=== PATIENT | female | born 1940 | race Caucasian/White ===

== ENCOUNTER 2023-04-20 22:29 | Inpatient (IN) | payer OTHER, MEDICAID ==
[~2023-04-20] VITALS: Ht 162.6 cm; Wt 85.2 kg
[~2023-04-20 22:29] MED LIST: CLOP75TA28 PO; ENAL1TAB42 PO; EZET10TA22 PO; FOLI1TAB51 PO; FURO1TAB33 PO; GABA100C PO; GLIP10TA9 PO; LEV100T PO; LEVEMIR SC; LEVO175T2 PO; MELO-335 PO; NITR0.4S29 SL; NOR10T PO; PRAV20TA3 PO; VENL150C58 PO
[2023-04-21] VITALS (12 sets, daily range): BP systolic 78–121; BP diastolic 45–78; PULSE 59–93; RESP 13–22; TEMP 97.7; O2SAT 85–100
[2023-04-21] MEDS ORDERED: ALBU108A5 INH (16:07)
[2023-04-21] MEDS ORDERED: NITROGLYCERIN 0.4 MG SL TAB SL PRN (17:30)
[2023-04-21] MEDS ORDERED: ACETAMINOPHEN 325 MG TAB PO PRN (17:30)
[2023-04-21] MEDS ORDERED: MORPHINE SULFATE INJ 2 MG/ml SYRG IV PRN ×2 (17:30)
[2023-04-21] MEDS ORDERED: GABA-1250 PO (17:50)
[2023-04-21] MEDS ORDERED: METO-159 PO (17:50)
[2023-04-21] MEDS ORDERED: FERR325T20 PO (17:50)
[2023-04-21] MEDS ORDERED: PRE5T PO (17:50)
[2023-04-21] MEDS ORDERED: ERGO1CAP12 PO (17:50)
[2023-04-21] MEDS ORDERED: ASPI-325 PO (17:50)
[2023-04-21] MEDS ORDERED: PANT40T PO (17:50)
[2023-04-21] MEDS ORDERED: LEVO175T4 PO (17:50)
[2023-04-21] MEDS ORDERED: APIX2.5T PO (17:50)
[2023-04-21 17:54] LABS: Alanine Aminotransferase 27 U/L (7-40); Albumin 3.8 g/dL (3.2-4.8); Alkaline Phosphatase 69 U/L (46-116); Anion Gap 11 (5-15); Aspartate Aminotransferase 43 U/L (13-40); BUN/Creatinine Ratio 15.4 (10.0-20.0); Bilirubin, Total 0.4 mg/dL (0.2-1.0); Blood Urea Nitrogen 30 mg/dL (9-23); Calcium 9.2 mg/dL (8.5-10.1); Carbon Dioxide 19 mmol/L (20-30); Chloride 103 mmol/L (98-107); Glucose 237 mg/dL (74-106); Potassium 4.6 mmol/L (3.5-5.1); Sodium 133 mmol/L (136-145); Total Protein 6.2 g/dL (5.7-8.2)
[2023-04-21] MEDS ORDERED: FURO1TAB31 PO (17:55)
[2023-04-21] MEDS ORDERED: DEXTROSE (50%) 50ML SYRG IV PRN (18:00)
[2023-04-21] MEDS ORDERED: FERROUS SULFATE 325mg EC TAB PO SCH (18:00)
[2023-04-21 18:03] LABS: Basophils # (auto) 0.1 10 ^3/uL (0-0.2); Basophils % (auto) 0.7 % (0.0-2.0); Eosinophils # (auto) 0.3 10 ^3/uL (0-0.8); Eosinophils % (auto) 2.1 % (0.0-7.0); Hematocrit 31.1 % (36.0-46.0); Hemoglobin 9.7 g/dL (12.2-16.2); Lymphocytes # (auto) 1.5 10 ^3/uL (0.4-5.4); Lymphocytes % (auto) 11.4 % (10.0-50.0); Mean Corpuscular Hemoglobin 30.8 pg (28.0-32.0); Mean Corpuscular Hgb Conc. 31.1 g/dL (32.0-36.0); Mean Corpuscular Volume 98.8 fL (80.0-100.0); Monocytes # (auto) 1.7 10 ^3/uL (0-1.3); Monocytes % (auto) 12.8 % (0.0-12.0); Neutrophils # (auto) 9.6 10 ^3/uL (1.6-8.6); Red Blood Cells 3.15 10^6/uL (4.0-5.20); Red Cell Distribution Width 19.9 % (11.8-14.3); White Blood Cell 13.1 10^3/uL (4.4-10.8)
[2023-04-21 18:04] LABS: Nucleated Red Blood Cells % 3.3 %
[2023-04-21 18:27] LABS: Triglycerides 123 mg/dL (< 150)
[2023-04-21 18:28] LABS: LDL Cholesterol 61 mg/dL (< 100)
[2023-04-21 18:29] LABS: HDL Cholesterol 38 mg/dL (40-59)
[2023-04-21 18:30] LABS: Cholesterol 128 mg/dL (< 200)
[2023-04-21] MEDS ORDERED: methylPREDNISolone SOD SUCC 125 MG/2 ML VL IV ONE (18:30)
[2023-04-21] MEDS ORDERED: ENOXAPARIN SOD 40 MG/0.4 ML SYRINGE SC ONE (18:30)
[2023-04-21] MEDS: FUROSEMIDE 40 MG/4 ML VIAL IV SCH (18:41)
[2023-04-21 18:43] LABS: COVID19 ANTIGEN SOFIA FIA NEGATIVE (NEGATIVE)
[2023-04-21] MEDS ORDERED: ENOXAPARIN SOD 30 MG/0.3 ML SYRINGE SC SCH (18:43)
[2023-04-21] MEDS ORDERED: INSU1INJ14 SC (18:51)
[2023-04-21] MEDS: AZITHROMYCIN 500MG/ 250ML 250 ML IV SCH (19:00)
[2023-04-21] MEDS: BUDESONIDE (INHALATION) 0.5 MG/2 ML NEB NEB SCH (19:07)
[2023-04-21] MEDS: IPRATROPIUM BROM 0.5 MG/2.5ML INH SOL NEB SCH (19:07)
[2023-04-21 19:31] LABS: Base Excess -7.2 mmol/L (-2.0-2.0)
[2023-04-21 20:27] LABS: % Iron Saturation 28.3 % (15-50)
[2023-04-21] MEDS ORDERED: LORazepam 2MG/ML-1ML VIAL IV PRN (21:30)
[2023-04-21] MEDS: ACCU-CHEK COMFORT CURVE STRIP VI SCH (21:45)
[2023-04-21 21:47] LABS: Base Excess -12.7 mmol/L (-2.0-2.0)
[2023-04-21] MEDS: PANTOPRAZOLE 40 MG/10 ML VIAL INJ IV SCH (21:53)
[2023-04-21] MEDS: cefTRIAXone 1GM/50ML D5W 50 ML IV SCH (21:53)
[2023-04-21] MEDS ORDERED: INSULIN LANTUS (GLARGINE) 1 /0.01ml (100units/ml) SC SCH (22:00)
[2023-04-21] MEDS ORDERED: InsuLIN REG 1unit/0.01ml Soln (100units/ml) SC SCH (22:00)
[2023-04-21] MEDS ORDERED: FUROSEMIDE 40 MG/4 ML VIAL IV ONE (23:45)
[2023-04-21] MEDS ORDERED: SODIUM BICARBONATE 8.4 % INJ 50ML VIAL IV ONE (23:45)
[2023-04-21 23:47] LABS: Urine Epithelial Cast None Seen /hpf (<5)
[2023-04-22] VITALS (87 sets, daily range): BP systolic 78–133; BP diastolic 36–77; PULSE 62–104; RESP 12–41; TEMP 96–98.1; O2SAT 84–100
[2023-04-22 00:08] LABS: Creatinine, Urine 178.23 mg/dL (30.0-125.0)
[2023-04-22 00:20] LABS: Protein, Urine 224.4 mg/dL (0.0-11.9); Urine Protein/Creatinine Ratio 1.26
[2023-04-22] MEDS: ALBUTEROL SULF 2.5 MG/0.5ML(0.5%) NEB SOLN NEB PRN ×3 (00:28→23:49)
[2023-04-22] MEDS: IPRATROPIUM BROM 0.5 MG/2.5ML INH SOL NEB SCH ×5 (00:28→23:49)
[2023-04-22 00:36] LABS: Urine Bacteria NONE SEEN /hpf (None Seen); Urine Mucus FEW (None Seen); Urine WBC 39 /hpf (0 - 5)
[2023-04-22 00:43] LABS: Urine Clarity HAZY (Clear); Urine Protein, UAD 3+ (Negative); Urine Specific Gravity 1.025 (1.001-1.035)
[2023-04-22 00:44] LABS: Urine Blood 3+ /uL (Negative)
[2023-04-22 00:45] LABS: Urine Color Yellow (Yellow)
[2023-04-22 01:14] LABS: Base Excess -6.2 mmol/L (-2.0-2.0)
[2023-04-22 06:00] LABS: Basophils # (auto) 0 10 ^3/uL (0-0.2); Basophils % (auto) 0.4 % (0.0-2.0); Eosinophils # (auto) 0 10 ^3/uL (0-0.8); Hematocrit 29.2 % (36.0-46.0); Hemoglobin 9.5 g/dL (12.2-16.2); Lymphocytes # (auto) 0.5 10 ^3/uL (0.4-5.4); Lymphocytes % (auto) 5.9 % (10.0-50.0); Mean Corpuscular Hemoglobin 31.5 pg (28.0-32.0); Mean Corpuscular Hgb Conc. 32.6 g/dL (32.0-36.0); Mean Corpuscular Volume 96.6 fL (80.0-100.0); Monocytes # (auto) 0.3 10 ^3/uL (0-1.3); Monocytes % (auto) 3.4 % (0.0-12.0); Neutrophils # (auto) 8.2 10 ^3/uL (1.6-8.6); Neutrophils % (auto) 90.3 % (37.0-80.0); Nucleated Red Blood Cells % 1.9 %; Red Blood Cells 3.02 10^6/uL (4.0-5.20); Red Cell Distribution Width 18.1 % (11.8-14.3); White Blood Cell 9.1 10^3/uL (4.4-10.8)
[2023-04-22 06:09] LABS: Alkaline Phosphatase 69 U/L (46-116)
[2023-04-22 06:10] LABS: Alanine Aminotransferase 106 U/L (7-40); Albumin 3.6 g/dL (3.2-4.8); Anion Gap 13 (5-15); Aspartate Aminotransferase 159 U/L (13-40); BUN/Creatinine Ratio 14.8 (10.0-20.0); Bilirubin, Total 0.4 mg/dL (0.2-1.0); Blood Urea Nitrogen 37 mg/dL (9-23); Calcium 9.2 mg/dL (8.5-10.1); Carbon Dioxide 19 mmol/L (20-30); Chloride 101 mmol/L (98-107); Glucose 365 mg/dL (74-106); Potassium 4.7 mmol/L (3.5-5.1); Sodium 133 mmol/L (136-145); Total Protein 5.8 g/dL (5.7-8.2)
[2023-04-22] MEDS: FUROSEMIDE 40 MG/4 ML VIAL IV SCH ×3 (06:34→18:00)
[2023-04-22] MEDS ORDERED: InsuLIN REG 1unit/0.01ml Soln (100units/ml) SC SCH (07:00)
[2023-04-22] MEDS: LEVOTHYROXINE SODIUM 50 MCG TAB PO SCH (07:00)
[2023-04-22] MEDS: BUDESONIDE (INHALATION) 0.5 MG/2 ML NEB NEB SCH ×2 (07:13→23:49)
[2023-04-22] MEDS ORDERED: HEPARIN DRIP/D5W 100UNITS/ML 250 ML IV SCH (07:15)
[2023-04-22] MEDS: ACCU-CHEK COMFORT CURVE STRIP VI SCH ×4 (07:31→21:46)
[2023-04-22] MEDS ORDERED: INSULIN LANTUS (GLARGINE) 1 /0.01ml (100units/ml) SC SCH (08:15)
[2023-04-22] MEDS ORDERED: ERGOCALCIFEROL 50,000 UNIT(1.25MG) CAP PO SCH (08:15)
[2023-04-22] MEDS ORDERED: INSULIN LANTUS (GLARGINE) 1 /0.01ml (100units/ml) SC ONE ×2 (08:15→09:30)
[2023-04-22] MEDS: cefTRIAXone 1GM/50ML D5W 50 ML IV SCH (08:17)
[2023-04-22] MEDS: PANTOPRAZOLE 40 MG/10 ML VIAL INJ IV SCH ×2 (08:17→21:40)
[2023-04-22] MEDS: methylPREDNISolone SOD SUCC 40 MG/ML VL IV SCH ×2 (08:17→21:40)
[2023-04-22 08:22] LABS: INR 1.24 (0.9-1.15); Partial Thromboplastin Time 28.9 SEC (24.5-34.5); Prothrombin Time 12.8 sec (9.3-11.8)
[2023-04-22 08:43] LABS: Base Excess -6.5 mmol/L (-2.0-2.0)
[2023-04-22] MEDS: AZITHROMYCIN 500MG/ 250ML 250 ML IV SCH (08:59)
[2023-04-22] MEDS: CYANOCOBALAMIN 500 MCG TAB PO SCH (09:25)
[2023-04-22] MEDS ORDERED: DEXTROSE (50%) 50ML SYRG IV PRN (12:15)
[2023-04-22] MEDS ORDERED: DOCUSATE CALCIUM 240 MG CAP PO PRN (12:15)
[2023-04-22] MEDS: IRON SUCROSE COMPLEX 100 ML IV SCH (12:20)
[2023-04-22] MEDS: InsuLIN REG 1unit/0.01ml Soln (100units/ml) SC SCH ×3 (12:25→22:00)
[2023-04-22] MEDS: DOPamine 1600MCG/ML D5W 250 ML IV SCH (12:31)
[2023-04-22 13:25] LABS: Basophils # (auto) 0 10 ^3/uL (0-0.2); Basophils % (auto) 0.3 % (0.0-2.0); Eosinophils # (auto) 0 10 ^3/uL (0-0.8); Eosinophils % (auto) 0.1 % (0.0-7.0); Hematocrit 27.9 % (36.0-46.0); Hemoglobin 8.8 g/dL (12.2-16.2); Lymphocytes # (auto) 0.5 10 ^3/uL (0.4-5.4); Lymphocytes % (auto) 5.7 % (10.0-50.0); Mean Corpuscular Hemoglobin 31.2 pg (28.0-32.0); Mean Corpuscular Hgb Conc. 31.7 g/dL (32.0-36.0); Mean Corpuscular Volume 98.5 fL (80.0-100.0); Monocytes # (auto) 0.4 10 ^3/uL (0-1.3); Monocytes % (auto) 4.6 % (0.0-12.0); Neutrophils # (auto) 8.5 10 ^3/uL (1.6-8.6); Neutrophils % (auto) 89.3 % (37.0-80.0); Red Blood Cells 2.83 10^6/uL (4.0-5.20); Red Cell Distribution Width 18.9 % (11.8-14.3); White Blood Cell 9.5 10^3/uL (4.4-10.8)
[2023-04-22] MEDS: SODIUM BICARBONATE 650 MG TAB PO SCH ×2 (13:31→21:40)
[2023-04-22 13:33] LABS: Nucleated Red Blood Cells % 4.6 %
[2023-04-22] MEDS ORDERED: ONDANSETRON HCL 4 MG/2 ML VIAL IV PRN (14:45)
[2023-04-22] MEDS: INSULIN LANTUS (GLARGINE) 1 /0.01ml (100units/ml) SC SCH ×2 (15:00→22:00)
[2023-04-22 15:53] LABS: INR 1.28 (0.9-1.15); Prothrombin Time 13.2 sec (9.3-11.8)
[2023-04-22 16:12] LABS: Partial Thromboplastin Time 85.7 SEC (24.5-34.5)
[2023-04-22 18:13] LABS: Basophils # (auto) 0 10 ^3/uL (0-0.2); Basophils % (auto) 0.2 % (0.0-2.0); Eosinophils # (auto) 0 10 ^3/uL (0-0.8); Hematocrit 25.7 % (36.0-46.0); Hemoglobin 8.3 g/dL (12.2-16.2); Lymphocytes # (auto) 0.5 10 ^3/uL (0.4-5.4); Lymphocytes % (auto) 4.7 % (10.0-50.0); Mean Corpuscular Hemoglobin 31.5 pg (28.0-32.0); Mean Corpuscular Hgb Conc. 32.4 g/dL (32.0-36.0); Monocytes # (auto) 0.7 10 ^3/uL (0-1.3); Monocytes % (auto) 6.5 % (0.0-12.0); Neutrophils # (auto) 10.1 10 ^3/uL (1.6-8.6); Neutrophils % (auto) 88.6 % (37.0-80.0); Nucleated Red Blood Cells % 2.3 %; Red Blood Cells 2.65 10^6/uL (4.0-5.20); Red Cell Distribution Width 18.1 % (11.8-14.3); White Blood Cell 11.5 10^3/uL (4.4-10.8)
[2023-04-22 22:46] LABS: INR 1.26 (0.9-1.15); Partial Thromboplastin Time 67.1 SEC (24.5-34.5)
[2023-04-22] MEDS: HYDROcodone-ACET 5/325MG TAB PO PRN (23:23)
[2023-04-23] VITALS (40 sets, daily range): BP systolic 93–123; BP diastolic 44–82; PULSE 76–174; RESP 13–34; TEMP 97.3–98.4; O2SAT 84–100
[2023-04-23 00:49] LABS: Basophils # (auto) 0 10 ^3/uL (0-0.2); Basophils % (auto) 0.2 % (0.0-2.0); Eosinophils # (auto) 0 10 ^3/uL (0-0.8); Hematocrit 26.4 % (36.0-46.0)
[2023-04-23 00:51] LABS: Eosinophils % (auto) 0.2 % (0.0-7.0); Hemoglobin 8.5 g/dL (12.2-16.2); Lymphocytes # (auto) 0.7 10 ^3/uL (0.4-5.4); Lymphocytes % (auto) 5.1 % (10.0-50.0); Mean Corpuscular Hemoglobin 31.6 pg (28.0-32.0); Mean Corpuscular Hgb Conc. 32.3 g/dL (32.0-36.0); Mean Corpuscular Volume 97.8 fL (80.0-100.0); Monocytes # (auto) 0.8 10 ^3/uL (0-1.3); Monocytes % (auto) 5.9 % (0.0-12.0); Neutrophils # (auto) 11.6 10 ^3/uL (1.6-8.6); Neutrophils % (auto) 88.6 % (37.0-80.0); Nucleated Red Blood Cells % 2.1 %; Red Cell Distribution Width 18.3 % (11.8-14.3); White Blood Cell 13.1 10^3/uL (4.4-10.8)
[2023-04-23 04:44] LABS: Basophils # (auto) 0 10 ^3/uL (0-0.2); Basophils % (auto) 0.3 % (0.0-2.0); Eosinophils # (auto) 0 10 ^3/uL (0-0.8); Eosinophils % (auto) 0.3 % (0.0-7.0); Hematocrit 26.3 % (36.0-46.0); Hemoglobin 8.5 g/dL (12.2-16.2); Lymphocytes # (auto) 0.5 10 ^3/uL (0.4-5.4); Lymphocytes % (auto) 3.8 % (10.0-50.0); Mean Corpuscular Hemoglobin 31.2 pg (28.0-32.0); Mean Corpuscular Hgb Conc. 32.5 g/dL (32.0-36.0); Mean Corpuscular Volume 95.9 fL (80.0-100.0); Monocytes # (auto) 0.6 10 ^3/uL (0-1.3); Monocytes % (auto) 4.8 % (0.0-12.0); Neutrophils % (auto) 90.8 % (37.0-80.0); Nucleated Red Blood Cells % 1.7 %; Red Blood Cells 2.74 10^6/uL (4.0-5.20); Red Cell Distribution Width 17.8 % (11.8-14.3); White Blood Cell 13.3 10^3/uL (4.4-10.8)
[2023-04-23 04:59] LABS: Alanine Aminotransferase 112 U/L (7-40); Albumin 3.7 g/dL (3.2-4.8); Alkaline Phosphatase 65 U/L (46-116); Anion Gap 11 (5-15); Aspartate Aminotransferase 132 U/L (13-40); BUN/Creatinine Ratio 18.3 (10.0-20.0); Bilirubin, Total 0.3 mg/dL (0.2-1.0); Blood Urea Nitrogen 44 mg/dL (9-23); Calcium 9.1 mg/dL (8.7-10.4); Carbon Dioxide 21 mmol/L (20-30); Chloride 101 mmol/L (98-107); Glucose 101 mg/dL (74-106); INR 1.19 (0.9-1.15); Magnesium 2.1 mg/dL (1.6-2.6); Partial Thromboplastin Time 64.4 SEC (24.5-34.5); Phosphorus 3.8 mg/dL (2.4-5.1); Potassium 4.1 mmol/L (3.5-5.1); Prothrombin Time 12.4 sec (9.3-11.8); Sodium 133 mmol/L (136-145)
[2023-04-23] MEDS: HEPARIN DRIP/D5W 100UNITS/ML 250 ML IV SCH ×2 (06:04→13:52)
[2023-04-23] MEDS: LEVOTHYROXINE SODIUM 50 MCG TAB PO SCH (06:20)
[2023-04-23] MEDS: SODIUM BICARBONATE 650 MG TAB PO SCH ×3 (06:20→22:58)
[2023-04-23] MEDS: ACCU-CHEK COMFORT CURVE STRIP VI SCH ×4 (06:21→22:00)
[2023-04-23] MEDS: FUROSEMIDE 40 MG/4 ML VIAL IV SCH ×2 (06:21→19:00)
[2023-04-23] MEDS: InsuLIN REG 1unit/0.01ml Soln (100units/ml) SC SCH ×4 (06:22→22:59)
[2023-04-23] MEDS: IPRATROPIUM BROM 0.5 MG/2.5ML INH SOL NEB SCH ×2 (06:45→20:09)
[2023-04-23] MEDS: BUDESONIDE (INHALATION) 0.5 MG/2 ML NEB NEB SCH ×2 (06:45→20:09)
[2023-04-23 08:24] LABS: Hepatitis B Surface Antigen Negative (Negative)
[2023-04-23] MEDS: methylPREDNISolone SOD SUCC 40 MG/ML VL IV SCH ×2 (08:39→22:57)
[2023-04-23] MEDS: PANTOPRAZOLE 40 MG/10 ML VIAL INJ IV SCH ×2 (08:39→22:58)
[2023-04-23] MEDS: CYANOCOBALAMIN 500 MCG TAB PO SCH (08:39)
[2023-04-23] MEDS: cefTRIAXone 1GM/50ML D5W 50 ML IV SCH (08:41)
[2023-04-23 08:44] LABS: Hepatitis A Ab IgM Negative
[2023-04-23 08:45] LABS: Hepatitis B Core IgM Negative
[2023-04-23 08:46] LABS: Hepatitis C Antibody Negative (Negative)
[2023-04-23] MEDS ORDERED: LACTULOSE 20Gm/30ML SOLN PO PRN (09:15)
[2023-04-23] MEDS: AZITHROMYCIN 500MG/ 250ML 250 ML IV SCH (09:52)
[2023-04-23] MEDS ORDERED: VENLAFAXINE HCL 37.5MG TABLET PO ONE (10:45)
[2023-04-23 11:39] LABS: Eosinophils # (auto) 0 10 ^3/uL (0-0.8); Eosinophils % (auto) 0.1 % (0.0-7.0); Hemoglobin 8.3 g/dL (12.2-16.2); Lymphocytes # (auto) 0.4 10 ^3/uL (0.4-5.4); Lymphocytes % (auto) 3.2 % (10.0-50.0); Monocytes # (auto) 0.5 10 ^3/uL (0-1.3)
[2023-04-23 11:41] LABS: Basophils # (auto) 0.1 10 ^3/uL (0-0.2); Basophils % (auto) 0.5 % (0.0-2.0); Hematocrit 25.4 % (36.0-46.0); Mean Corpuscular Hemoglobin 30.8 pg (28.0-32.0); Mean Corpuscular Hgb Conc. 32.6 g/dL (32.0-36.0); Mean Corpuscular Volume 94.5 fL (80.0-100.0); Monocytes % (auto) 4.5 % (0.0-12.0); Neutrophils % (auto) 91.7 % (37.0-80.0); Nucleated Red Blood Cells % 2.1 %; Red Blood Cells 2.69 10^6/uL (4.0-5.20); Red Cell Distribution Width 17.6 % (11.8-14.3)
[2023-04-23] MEDS: IRON SUCROSE COMPLEX 100 ML IV SCH (11:50)
[2023-04-23 12:02] LABS: INR 1.21 (0.9-1.15); Partial Thromboplastin Time 67.8 SEC (24.5-34.5); Prothrombin Time 12.5 sec (9.3-11.8)
[2023-04-23] MEDS ORDERED: HALOPERIDOL LACTATE 5 MG/ML INJ VIAL IM PRN (16:00)
[2023-04-23 18:57] LABS: Basophils # (auto) 0.1 10 ^3/uL (0-0.2); Basophils % (auto) 0.6 % (0.0-2.0); Eosinophils # (auto) 0 10 ^3/uL (0-0.8); Eosinophils % (auto) 0.1 % (0.0-7.0); Hematocrit 26.2 % (36.0-46.0); Hemoglobin 8.5 g/dL (12.2-16.2); Lymphocytes # (auto) 0.4 10 ^3/uL (0.4-5.4); Lymphocytes % (auto) 3.7 % (10.0-50.0); Mean Corpuscular Hgb Conc. 32.3 g/dL (32.0-36.0); Mean Corpuscular Volume 96.2 fL (80.0-100.0); Monocytes # (auto) 0.5 10 ^3/uL (0-1.3); Neutrophils # (auto) 9.1 10 ^3/uL (1.6-8.6); Neutrophils % (auto) 90.6 % (37.0-80.0); Nucleated Red Blood Cells % 2.9 %; Red Blood Cells 2.72 10^6/uL (4.0-5.20); Red Cell Distribution Width 18.6 % (11.8-14.3); White Blood Cell 10.1 10^3/uL (4.4-10.8)
[2023-04-23] MEDS: DOPamine 1600MCG/ML D5W 250 ML IV SCH (19:00)
[2023-04-23] MEDS: ALBUTEROL SULF 2.5 MG/0.5ML(0.5%) NEB SOLN NEB PRN (20:08)
[2023-04-23] MEDS ORDERED: QUEtiapine FUMARATE 25 MG TAB PO SCH (22:00)
[2023-04-23] MEDS ORDERED: MELATONIN 5 MG TAB PO SCH (22:00)
[2023-04-23] MEDS: MELATONIN 5 MG TAB PO SCH (22:58)
[2023-04-23] MEDS: INSULIN LANTUS (GLARGINE) 1 /0.01ml (100units/ml) SC SCH (23:00)
[2023-04-24] VITALS (13 sets, daily range): BP systolic 129–149; BP diastolic 57–83; PULSE 70–119; RESP 18–20; TEMP 97.5–98.8; O2SAT 90–100
[2023-04-24] MEDS: IPRATROPIUM BROM 0.5 MG/2.5ML INH SOL NEB SCH ×6 (00:28→23:19)
[2023-04-24 05:17] LABS: Basophils # (auto) 0 10 ^3/uL (0-0.2); Basophils % (auto) 0.1 % (0.0-2.0); Eosinophils # (auto) 0 10 ^3/uL (0-0.8); Hemoglobin 8.7 g/dL (12.2-16.2); Lymphocytes # (auto) 0.4 10 ^3/uL (0.4-5.4); Lymphocytes % (auto) 3.6 % (10.0-50.0); Mean Corpuscular Hemoglobin 31.8 pg (28.0-32.0); Mean Corpuscular Hgb Conc. 33.4 g/dL (32.0-36.0); Mean Corpuscular Volume 95.2 fL (80.0-100.0); Monocytes # (auto) 0.4 10 ^3/uL (0-1.3); Monocytes % (auto) 3.8 % (0.0-12.0); Neutrophils # (auto) 9.1 10 ^3/uL (1.6-8.6); Neutrophils % (auto) 92.5 % (37.0-80.0); Nucleated Red Blood Cells % 2.4 %; Red Blood Cells 2.73 10^6/uL (4.0-5.20); Red Cell Distribution Width 17.9 % (11.8-14.3); White Blood Cell 9.8 10^3/uL (4.4-10.8)
[2023-04-24 05:26] LABS: Alanine Aminotransferase 105 U/L (7-40); Albumin 3.9 g/dL (3.2-4.8); Alkaline Phosphatase 69 U/L (46-116); Anion Gap 14 (5-15); Aspartate Aminotransferase 81 U/L (13-40); BUN/Creatinine Ratio 22.5 (10.0-20.0); Blood Urea Nitrogen 48 mg/dL (9-23); Calcium 9.3 mg/dL (8.7-10.4); Carbon Dioxide 22 mmol/L (20-30); Chloride 99 mmol/L (98-107); Glucose 157 mg/dL (74-106); Potassium 3.9 mmol/L (3.5-5.1); Sodium 135 mmol/L (136-145)
[2023-04-24 05:27] LABS: Bilirubin, Total 0.2 mg/dL (0.2-1.0); Total Protein 6.1 g/dL (5.7-8.2)
[2023-04-24 05:30] LABS: INR 1.21 (0.9-1.15); Partial Thromboplastin Time 63.5 SEC (24.5-34.5); Prothrombin Time 12.5 sec (9.3-11.8)
[2023-04-24] MEDS: BUDESONIDE (INHALATION) 0.5 MG/2 ML NEB NEB SCH ×2 (06:45→19:02)
[2023-04-24] MEDS: InsuLIN REG 1unit/0.01ml Soln (100units/ml) SC SCH ×5 (07:00→22:00)
[2023-04-24] MEDS: ACCU-CHEK COMFORT CURVE STRIP VI SCH ×6 (07:00→22:00)
[2023-04-24] MEDS: SODIUM BICARBONATE 650 MG TAB PO SCH (07:46)
[2023-04-24] MEDS: FUROSEMIDE 40 MG/4 ML VIAL IV SCH ×2 (07:46→18:20)
[2023-04-24] MEDS: LEVOTHYROXINE SODIUM 50 MCG TAB PO SCH (07:46)
[2023-04-24] MEDS: cefTRIAXone 1GM/50ML D5W 50 ML IV SCH (08:41)
[2023-04-24] MEDS ORDERED: InsuLIN REG 1unit/0.01ml Soln (100units/ml) SC ONE (08:45)
[2023-04-24] MEDS: methylPREDNISolone SOD SUCC 40 MG/ML VL IV SCH (10:07)
[2023-04-24] MEDS: PANTOPRAZOLE 40 MG/10 ML VIAL INJ IV SCH (10:07)
[2023-04-24] MEDS: CYANOCOBALAMIN 500 MCG TAB PO SCH (10:07)
[2023-04-24] MEDS: VENLAFAXINE HCL 37.5MG TABLET PO SCH (10:08)
[2023-04-24] MEDS: AZITHROMYCIN 500MG/ 250ML 250 ML IV SCH (10:08)
[2023-04-24] MEDS ORDERED: DOCUSATE SOD 100 MG CAP PO ONE (10:30)
[2023-04-24] MEDS ORDERED: LACTULOSE 20Gm/30ML SOLN PO ONE (10:30)
[2023-04-24] MEDS ORDERED: SUCRALFATE 1 GM TAB PO ONE (10:30)
[2023-04-24] MEDS ORDERED: DEXTROSE (50%) 50ML SYRG IV PRN (10:30)
[2023-04-24] MEDS: SUCRALFATE 1 GM TAB PO SCH ×2 (12:00→18:19)
[2023-04-24] MEDS: IRON SUCROSE COMPLEX 100 ML IV SCH (12:03)
[2023-04-24] MEDS: Glucerna Carbsteady SHAKE Stawberry 8oz PO SCH ×2 (17:27→18:27)
[2023-04-24] MEDS: ALBUTEROL SULF 2.5 MG/0.5ML(0.5%) NEB SOLN NEB PRN ×2 (19:02→23:19)
[2023-04-25] VITALS (17 sets, daily range): BP systolic 116–160; BP diastolic 68–90; PULSE 91–134; RESP 16–22; TEMP 97.6–98.7; O2SAT 64–100
[2023-04-25] MEDS: PANTOPRAZOLE 40 MG/10 ML VIAL INJ IV SCH ×3 (00:11→21:38)
[2023-04-25] MEDS: SODIUM BICARBONATE 650 MG TAB PO SCH ×3 (00:12→21:36)
[2023-04-25] MEDS: PRAVASTATIN SODIUM 20 MG TAB PO SCH ×2 (00:12→21:37)
[2023-04-25] MEDS: MELATONIN 5 MG TAB PO SCH ×2 (00:12→21:37)
[2023-04-25] MEDS: INSULIN LANTUS (GLARGINE) 1 /0.01ml (100units/ml) SC SCH ×2 (00:14→21:49)
[2023-04-25] MEDS: ACCU-CHEK COMFORT CURVE STRIP VI SCH ×9 (00:23→22:00)
[2023-04-25] MEDS: HEPARIN DRIP/D5W 100UNITS/ML 250 ML IV SCH (00:23)
[2023-04-25 06:57] LABS: INR 1.17 (0.9-1.15); Partial Thromboplastin Time 69.8 SEC (24.5-34.5); Prothrombin Time 12.2 sec (9.3-11.8)
[2023-04-25 07:05] LABS: Chloride 103 mmol/L (98-107); Potassium 3.5 mmol/L (3.5-5.1); Sodium 141 mmol/L (136-145)
[2023-04-25 07:06] LABS: Calcium 9.9 mg/dL (8.5-10.1)
[2023-04-25 07:08] LABS: Basophils # (auto) 0 10 ^3/uL (0-0.2); Basophils % (auto) 0.2 % (0.0-2.0); Eosinophils # (auto) 0.1 10 ^3/uL (0-0.8); Eosinophils % (auto) 0.5 % (0.0-7.0); Hematocrit 26.5 % (36.0-46.0); Hemoglobin 8.9 g/dL (12.2-16.2); Lymphocytes # (auto) 1.1 10 ^3/uL (0.4-5.4); Lymphocytes % (auto) 10.1 % (10.0-50.0); Mean Corpuscular Hgb Conc. 33.6 g/dL (32.0-36.0); Mean Corpuscular Volume 95.3 fL (80.0-100.0); Monocytes # (auto) 1.1 10 ^3/uL (0-1.3); Monocytes % (auto) 10.1 % (0.0-12.0); Neutrophils # (auto) 8.4 10 ^3/uL (1.6-8.6); Neutrophils % (auto) 79.1 % (37.0-80.0); Nucleated Red Blood Cells % 2.8 %; Red Blood Cells 2.78 10^6/uL (4.0-5.20); Red Cell Distribution Width 18.6 % (11.8-14.3); White Blood Cell 10.6 10^3/uL (4.4-10.8)
[2023-04-25 07:11] LABS: BUN/Creatinine Ratio 22.5 (10.0-20.0); Blood Urea Nitrogen 41 mg/dL (9-23); Glucose 56 mg/dL (74-106)
[2023-04-25] MEDS: IPRATROPIUM BROM 0.5 MG/2.5ML INH SOL NEB SCH ×3 (07:19→18:30)
[2023-04-25 07:26] LABS: Carbon Dioxide 27 mmol/L (20-30)
[2023-04-25 07:28] LABS: Anion Gap 11 (5-15)
[2023-04-25] MEDS: FUROSEMIDE 40 MG/4 ML VIAL IV SCH ×2 (08:25→17:29)
[2023-04-25] MEDS: SUCRALFATE 1 GM TAB PO SCH ×3 (08:26→17:29)
[2023-04-25] MEDS: LEVOTHYROXINE SODIUM 50 MCG TAB PO SCH (08:26)
[2023-04-25] MEDS: InsuLIN REG 1unit/0.01ml Soln (100units/ml) SC SCH ×5 (08:27→21:59)
[2023-04-25] MEDS: cefTRIAXone 1GM/50ML D5W 50 ML IV SCH (08:49)
[2023-04-25] MEDS: Glucerna Carbsteady SHAKE Stawberry 8oz PO SCH ×3 (08:50→17:30)
[2023-04-25] MEDS: HYDROcodone-ACET 5/325MG TAB PO PRN ×3 (08:50→21:56)
[2023-04-25] MEDS: AZITHROMYCIN 250 MG TAB PO SCH (09:38)
[2023-04-25] MEDS: predniSONE 20 MG TAB PO SCH (09:38)
[2023-04-25] MEDS: VENLAFAXINE HCL 37.5MG TABLET PO SCH (09:38)
[2023-04-25] MEDS: CYANOCOBALAMIN 500 MCG TAB PO SCH (09:38)
[2023-04-25] MEDS: BUDESONIDE (INHALATION) 0.5 MG/2 ML NEB NEB SCH ×2 (11:01→18:30)
[2023-04-25] MEDS ORDERED: METOPROLOL TARTRATE 1MG/1ML-5ML VIAL IV PRN (11:45)
[2023-04-25] MEDS: IRON SUCROSE COMPLEX 100 ML IV SCH (12:07)
[2023-04-25] MEDS ORDERED: METOPROLOL TARTRATE 25 MG TAB PO ONE (14:00)
[2023-04-25] MEDS: METOPROLOL TARTRATE 25 MG TAB PO SCH (21:38)
[2023-04-26] VITALS (20 sets, daily range): BP systolic 119–146; BP diastolic 70–86; PULSE 75–126; RESP 15–21; TEMP 98–98.6; O2SAT 90–100
[2023-04-26] MEDS: IPRATROPIUM BROM 0.5 MG/2.5ML INH SOL NEB SCH ×4 (00:08→18:48)
[2023-04-26] MEDS: BUDESONIDE (INHALATION) 0.5 MG/2 ML NEB NEB SCH ×2 (06:36→21:50)
[2023-04-26 06:39] LABS: INR 1.14 (0.9-1.15); Partial Thromboplastin Time 30.9 SEC (24.5-34.5); Prothrombin Time 11.9 sec (9.3-11.8)
[2023-04-26] MEDS ORDERED: HEPARIN DRIP/D5W 100UNITS/ML 250 ML IV SCH ×2 (07:00→17:00)
[2023-04-26] MEDS: ACCU-CHEK COMFORT CURVE STRIP VI SCH ×3 (07:00→17:12)
[2023-04-26] MEDS: InsuLIN REG 1unit/0.01ml Soln (100units/ml) SC SCH ×3 (07:00→22:00)
[2023-04-26] MEDS: LEVOTHYROXINE SODIUM 50 MCG TAB PO SCH (07:13)
[2023-04-26] MEDS ORDERED: HEPARIN SODIUM (PORCINE) 5000 UNITS/ML 1ML VIAL IV ONE (07:15)
[2023-04-26] MEDS: FUROSEMIDE 40 MG/4 ML VIAL IV SCH ×2 (07:17→17:35)
[2023-04-26] MEDS: HEPARIN DRIP/D5W 100UNITS/ML 250 ML IV SCH (07:28)
[2023-04-26] MEDS: SUCRALFATE 1 GM TAB PO SCH ×3 (08:14→17:34)
[2023-04-26] MEDS: cefTRIAXone 1GM/50ML D5W 50 ML IV SCH (08:15)
[2023-04-26] MEDS: Glucerna Carbsteady SHAKE Stawberry 8oz PO SCH ×2 (08:15→12:16)
[2023-04-26] MEDS: predniSONE 20 MG TAB PO SCH (10:30)
[2023-04-26] MEDS: PANTOPRAZOLE 40 MG/10 ML VIAL INJ IV SCH ×2 (10:30→21:23)
[2023-04-26] MEDS: AZITHROMYCIN 250 MG TAB PO SCH (10:31)
[2023-04-26] MEDS: SODIUM BICARBONATE 650 MG TAB PO SCH ×2 (10:31→21:09)
[2023-04-26] MEDS: CYANOCOBALAMIN 500 MCG TAB PO SCH (10:31)
[2023-04-26] MEDS: VENLAFAXINE HCL 37.5MG TABLET PO SCH (10:32)
[2023-04-26] MEDS: dilTIAZem 120MG ER CAP PO SCH (10:33)
[2023-04-26] MEDS: METOPROLOL TARTRATE 25 MG TAB PO SCH ×2 (10:34→21:12)
[2023-04-26 14:09] LABS: INR 1.16 (0.9-1.15); Prothrombin Time 12.1 sec (9.3-11.8)
[2023-04-26 14:14] LABS: Partial Thromboplastin Time > 139.0 SEC (24.5-34.5)
[2023-04-26] MEDS: IRON SUCROSE COMPLEX 100 ML IV SCH (14:48)
[2023-04-26] MEDS: HYDROcodone-ACET 5/325MG TAB PO PRN ×2 (14:58→21:10)
[2023-04-26 15:22] LABS: INR 1.19 (0.9-1.15); Prothrombin Time 12.4 sec (9.3-11.8)
[2023-04-26 15:24] LABS: Partial Thromboplastin Time > 139.0 SEC (24.5-34.5)
[2023-04-26] MEDS: PRAVASTATIN SODIUM 20 MG TAB PO SCH (21:09)
[2023-04-26] MEDS: MELATONIN 5 MG TAB PO SCH (21:10)
[2023-04-26] MEDS ORDERED: INSULIN LANTUS (GLARGINE) 1 /0.01ml (100units/ml) SC SCH (22:00)
[2023-04-26 23:31] LABS: INR 1.14 (0.9-1.15); Prothrombin Time 11.9 sec (9.3-11.8)
[2023-04-26 23:47] LABS: Partial Thromboplastin Time 72.3 SEC (24.5-34.5)
[2023-04-27] VITALS (14 sets, daily range): BP systolic 122–149; BP diastolic 75–80; PULSE 79–120; RESP 16–22; TEMP 97.8–98.6; O2SAT 88–100
[2023-04-27] MEDS: IPRATROPIUM BROM 0.5 MG/2.5ML INH SOL NEB SCH ×5 (00:49→18:14)
[2023-04-27] MEDS: ACCU-CHEK COMFORT CURVE STRIP VI SCH ×4 (03:02→16:59)
[2023-04-27] MEDS: Glucerna Carbsteady SHAKE Stawberry 8oz PO SCH ×4 (04:18→17:34)
[2023-04-27] MEDS: FUROSEMIDE 40 MG/4 ML VIAL IV SCH ×2 (06:00→17:34)
[2023-04-27] MEDS: LEVOTHYROXINE SODIUM 50 MCG TAB PO SCH (07:00)
[2023-04-27] MEDS: InsuLIN REG 1unit/0.01ml Soln (100units/ml) SC SCH ×4 (07:00→21:31)
[2023-04-27] MEDS: BUDESONIDE (INHALATION) 0.5 MG/2 ML NEB NEB SCH ×3 (07:55→18:14)
[2023-04-27] MEDS: ALBUTEROL SULF 2.5 MG/0.5ML(0.5%) NEB SOLN NEB PRN ×2 (07:55→12:33)
[2023-04-27] MEDS: cefTRIAXone 1GM/50ML D5W 50 ML IV SCH (09:39)
[2023-04-27] MEDS: AZITHROMYCIN 250 MG TAB PO SCH (09:40)
[2023-04-27] MEDS: SUCRALFATE 1 GM TAB PO SCH ×3 (09:40→17:34)
[2023-04-27] MEDS: METOPROLOL TARTRATE 25 MG TAB PO SCH ×2 (09:43→21:01)
[2023-04-27] MEDS: dilTIAZem 120MG ER CAP PO SCH (09:43)
[2023-04-27] MEDS ORDERED: MORPHINE SULFATE INJ 2 MG/ml SYRG IV PRN (09:45)
[2023-04-27] MEDS: APIXABAN 2.5 MG TAB PO SCH ×2 (10:00→22:00)
[2023-04-27] MEDS: predniSONE 20 MG TAB PO SCH (10:00)
[2023-04-27] MEDS: PANTOPRAZOLE 40 MG TAB PO SCH ×2 (10:00→22:00)
[2023-04-27] MEDS: VENLAFAXINE HCL 37.5MG TABLET PO SCH (11:12)
[2023-04-27] MEDS: CYANOCOBALAMIN 500 MCG TAB PO SCH (11:13)
[2023-04-27] MEDS: HYDROcodone-ACET 5/325MG TAB PO PRN (12:19)
[2023-04-27] MEDS: IRON SUCROSE COMPLEX 100 ML IV SCH (12:20)
[2023-04-27] MEDS: MELATONIN 5 MG TAB PO SCH (22:00)
[2023-04-27] MEDS: PRAVASTATIN SODIUM 20 MG TAB PO SCH (22:00)
[2023-04-28] VITALS (10 sets, daily range): BP systolic 126–150; BP diastolic 85–100; PULSE 82–134; RESP 14–19; TEMP 97.3; O2SAT 92–98
[2023-04-28] MEDS: IPRATROPIUM BROM 0.5 MG/2.5ML INH SOL NEB SCH ×3 (00:11→11:43)
[2023-04-28] MEDS: ACCU-CHEK COMFORT CURVE STRIP VI SCH ×2 (03:48→07:43)
[2023-04-28] MEDS: HYDROcodone-ACET 5/325MG TAB PO PRN (05:25)
[2023-04-28 06:11] LABS: Basophils # (auto) 0 10 ^3/uL (0-0.2); Basophils % (auto) 0.3 % (0.0-2.0); Eosinophils # (auto) 0 10 ^3/uL (0-0.8); Eosinophils % (auto) 0.2 % (0.0-7.0); Hematocrit 31.8 % (36.0-46.0); Lymphocytes # (auto) 0.8 10 ^3/uL (0.4-5.4); Lymphocytes % (auto) 8.5 % (10.0-50.0); Mean Corpuscular Hemoglobin 31.5 pg (28.0-32.0); Mean Corpuscular Hgb Conc. 31.5 g/dL (32.0-36.0); Monocytes % (auto) 10.4 % (0.0-12.0); Neutrophils # (auto) 7.6 10 ^3/uL (1.6-8.6); Neutrophils % (auto) 80.6 % (37.0-80.0); Nucleated Red Blood Cells % 3.4 %; Red Blood Cells 3.18 10^6/uL (4.0-5.20); Red Cell Distribution Width 23.4 % (11.8-14.3); White Blood Cell 9.5 10^3/uL (4.4-10.8)
[2023-04-28 06:29] LABS: Anion Gap 11 (5-15); Carbon Dioxide 28 mmol/L (20-30); Chloride 100 mmol/L (98-107); Potassium 3.7 mmol/L (3.5-5.1); Sodium 139 mmol/L (136-145)
[2023-04-28 06:30] LABS: Calcium 9.7 mg/dL (8.5-10.1)
[2023-04-28] MEDS: BUDESONIDE (INHALATION) 0.5 MG/2 ML NEB NEB SCH (06:30)
[2023-04-28] MEDS: ALBUTEROL SULF 2.5 MG/0.5ML(0.5%) NEB SOLN NEB PRN ×2 (06:30→11:43)
[2023-04-28 06:35] LABS: BUN/Creatinine Ratio 22.2 (10.0-20.0); Blood Urea Nitrogen 34 mg/dL (9-23); Glucose 76 mg/dL (74-106)
[2023-04-28] MEDS: InsuLIN REG 1unit/0.01ml Soln (100units/ml) SC SCH (07:00)
[2023-04-28] MEDS: LEVOTHYROXINE SODIUM 50 MCG TAB PO SCH (07:00)
[2023-04-28] MEDS: FUROSEMIDE 40 MG/4 ML VIAL IV SCH (07:41)
[2023-04-28] MEDS: SUCRALFATE 1 GM TAB PO SCH (08:00)
[2023-04-28] MEDS: VENLAFAXINE HCL 37.5MG TABLET PO SCH (10:00)
[2023-04-28] MEDS: METOPROLOL TARTRATE 25 MG TAB PO SCH (10:00)
[2023-04-28] MEDS: dilTIAZem 120MG ER CAP PO SCH (10:00)
[2023-04-28] MEDS: predniSONE 20 MG TAB PO SCH (10:00)
[2023-04-28] MEDS: AZITHROMYCIN 250 MG TAB PO SCH (10:00)
[2023-04-28] MEDS: CYANOCOBALAMIN 500 MCG TAB PO SCH (10:00)
[2023-04-28] MEDS: PANTOPRAZOLE 40 MG TAB PO SCH (10:00)
[2023-04-28] MEDS: APIXABAN 2.5 MG TAB PO SCH (10:00)
[2023-04-28] MEDS: Glucerna Carbsteady SHAKE Stawberry 8oz PO SCH (10:16)
[2023-04-28] MEDS: cefTRIAXone 1GM/50ML D5W 50 ML IV SCH (10:17)
[2023-04-28] MEDS ORDERED: DOXYCYCLINE 100 MG TAB/CAP PO SCH (22:00)
== END 2023-04-28 14:02 | disposition hospice, home (50) | DRG 280 ==
LOC: TELE-WESTW 04-21 14:12 → DOU IN ICU 04-21 22:23 → TELE-CENTR 04-23 17:28
PROVIDERS: ADMIT Internal Medicine; ATTEND Internal Medicine
PROC: 5A09357 Assistance with Respiratory Ventilation, Less than 24 Consecutive Hours, Continuous Positive Airway Pressure (ICD-10-PCS; principal; 2023-04-21)
PROC: 5A09357 Assistance with Respiratory Ventilation, Less than 24 Consecutive Hours, Continuous Positive Airway Pressure (ICD-10-PCS; 2023-04-22)
PROC: 05H933Z Insertion of Infusion Device into Right Brachial Vein, Percutaneous Approach (ICD-10-PCS; 2023-04-22)
PROC: B54MZZA Ultrasonography of Right Upper Extremity Veins, Guidance (ICD-10-PCS; 2023-04-22)
PROC: 5A09357 Assistance with Respiratory Ventilation, Less than 24 Consecutive Hours, Continuous Positive Airway Pressure (ICD-10-PCS; 2023-04-23)
PROC: 5A09357 Assistance with Respiratory Ventilation, Less than 24 Consecutive Hours, Continuous Positive Airway Pressure (ICD-10-PCS; 2023-04-24)
PROC: 5A09357 Assistance with Respiratory Ventilation, Less than 24 Consecutive Hours, Continuous Positive Airway Pressure (ICD-10-PCS; 2023-04-26)
DX: I13.0 Hypertensive heart and chronic kidney disease with heart failure and stage 1 through stage 4 chronic kidney disease, or unspecified chronic kidney disease (principal); G93.41 Metabolic encephalopathy; I21.A1 Myocardial infarction type 2; J96.21 Acute and chronic respiratory failure with hypoxia; I50.33 Acute on chronic diastolic (congestive) heart failure; K27.4 Chronic or unspecified peptic ulcer, site unspecified, with hemorrhage; J18.9 Pneumonia, unspecified organism; N17.0 Acute kidney failure with tubular necrosis; E87.20 Acidosis, unspecified; N39.0 Urinary tract infection, site not specified; N17.9 Acute kidney failure, unspecified; I48.92 Unspecified atrial flutter; I48.20 Chronic atrial fibrillation, unspecified; G93.1 Anoxic brain damage, not elsewhere classified; J44.0 Chronic obstructive pulmonary disease with (acute) lower respiratory infection; J44.1 Chronic obstructive pulmonary disease with (acute) exacerbation; D68.69 Other thrombophilia; I35.0 Nonrheumatic aortic (valve) stenosis; E78.5 Hyperlipidemia, unspecified; F32.A Depression, unspecified; E03.9 Hypothyroidism, unspecified; E66.01 Morbid (severe) obesity due to excess calories; I27.20 Pulmonary hypertension, unspecified; D63.1 Anemia in chronic kidney disease; N18.32 Chronic kidney disease, stage 3b; K59.00 Constipation, unspecified; D33.2 Benign neoplasm of brain, unspecified; E11.22 Type 2 diabetes mellitus with diabetic chronic kidney disease; E11.40 Type 2 diabetes mellitus with diabetic neuropathy, unspecified; E11.51 Type 2 diabetes mellitus with diabetic peripheral angiopathy without gangrene; E11.65 Type 2 diabetes mellitus with hyperglycemia; F17.200 Nicotine dependence, unspecified, uncomplicated; I07.1 Rheumatic tricuspid insufficiency; I37.1 Nonrheumatic pulmonary valve insufficiency; I44.30 Unspecified atrioventricular block; I45.10 Unspecified right bundle-branch block; Z68.35 Body mass index [BMI] 35.0-35.9, adult; M79.674 Pain in right toe(s); Z20.822 Contact with and (suspected) exposure to COVID-19; G47.00 Insomnia, unspecified; M10.9 Gout, unspecified; I65.22 Occlusion and stenosis of left carotid artery; D72.829 Elevated white blood cell count, unspecified; I25.2 Old myocardial infarction; Z90.710 Acquired absence of both cervix and uterus; Z51.5 Encounter for palliative care; Z91.041 Radiographic dye allergy status; Z95.2 Presence of prosthetic heart valve; Z79.82 Long term (current) use of aspirin; Z79.899 Other long term (current) drug therapy; Z82.49 Family history of ischemic heart disease and other diseases of the circulatory system; Z86.011 Personal history of benign neoplasm of the brain; Z90.49 Acquired absence of other specified parts of digestive tract; Z95.1 Presence of aortocoronary bypass graft; Z86.73 Personal history of transient ischemic attack (TIA), and cerebral infarction without residual deficits; Z95.0 Presence of cardiac pacemaker; Z99.81 Dependence on supplemental oxygen; Z79.01 Long term (current) use of anticoagulants
CPT/HCPCS: 36415; 36600; 70450; 71045; 76705; 76775; 80048; 80053; 80061; 80074; 81001; 82306; 82570; 82607; 82728; 82746; 82805; 82962; 83036; 83540; 83550; 83735; 83880; 83970; 84100; 84156; 84300; 84439; 84443; 84484; 85025; 85379; 85610; 85730; 87040; 87081; 87086; 87426; 92610; 93005; 93306; 93886; 93970; 94640; 94660; 95819; 97110; 97163; 97530; C9113; G0378; J1756; J1815